=== PATIENT | male | born 1965 | race Caucasian/White ===

== ENCOUNTER 2018-07-19 18:55 | Emergency (ER) | payer OTHER ==
[~2018-07-19] VITALS: Ht 177.8 cm; Wt 116.7 kg
[2018-07-19 19:41] LABS: BASOPHIL % 0.2 % (0-2); PLATELET COUNT 332 x10^3mcL (130-400)
[2018-07-19 19:54] LABS: CALCIUM 9.4 mg/dL (8.5-10.1); CARBON DIOXIDE 28.6 mmol/L (21-32); CHLORIDE SERUM 100 mmol/L (98-107); CREATININE SERUM 0.8 mg/dL (0.7-1.3); GFR1 > 60 mL/min; GLUCOSE SERUM 113 mg/dL (74-106); POTASSIUM SERUM 4.2 mmol/L (3.5-5.1); SODIUM SERUM 137 mmol/L (136-145)
[2018-07-19 20:05] LABS: ALBUMIN 3.7 g/dL (3.4-5.0); ALKALINE PHOSPHATASE 83 U/L (46-116); ALT/SGPT 31 U/L (16-63); AST/SGOT 33 U/L (15-37); BILIRUBIN TOTAL 0.33 mg/dL (0.20-1.00); LIPASE 208 IU/L (73-393); TOTAL PROTEIN, SERUM 8.2 g/dL (6.4-8.2)
[2018-07-19 20:40] LABS: microscopic required? YES; urine erythrocyte NEGATIVE (NEGATIVE)
[2018-07-19 20:49] LABS: AMPHETAMINE QUAL UR POSITIVE (See below)
[2018-07-19 21:24] VITALS: BP 136/90
== END 2018-07-19 21:24 | disposition home or self-care (01) ==
LOC: ED 18:55
PROVIDERS: Emergency Medicine
DX: R10.12 Left upper quadrant pain (principal); G89.29 Other chronic pain; M54.9 Dorsalgia, unspecified; K74.60 Unspecified cirrhosis of liver; F15.10 Other stimulant abuse, uncomplicated; J45.909 Unspecified asthma, uncomplicated
CPT/HCPCS: 36415

== ENCOUNTER 2018-12-14 23:19 | Emergency (ER) | payer OTHER ==
[~2018-12-14] VITALS: Ht 177.8 cm; Wt 119.7 kg
[2018-12-14 23:42] VITALS: Ht 177.8 cm; Wt 119.7 kg
[2018-12-15 00:42] LABS: BASOPHIL % 0.4 % (0-2); PLATELET COUNT 243 x10^3mcL (130-400)
[2018-12-15 00:48] LABS: UA SPECIFIC GRAVITY 1.025 (1.005-1.035); microscopic required? YES; urine erythrocyte 1+ (NEGATIVE)
[2018-12-15 00:52] LABS: CALCIUM 9.1 mg/dL (8.5-10.1); CARBON DIOXIDE 29.8 mmol/L (21-32); CHLORIDE SERUM 99 mmol/L (98-107); GFR1 > 60 mL/min; GLUCOSE SERUM 110 mg/dL (74-106); POTASSIUM SERUM 3.8 mmol/L (3.5-5.1); SODIUM SERUM 137 mmol/L (136-145)
[2018-12-15 00:55] LABS: RED CELL DISTRIBUTION WIDTH 15.4 % (11.5-14.5)
[2018-12-15 00:56] LABS: ALKALINE PHOSPHATASE 78 U/L (46-116); ALT/SGPT 50 U/L (16-63); AMYLASE 39 U/L (25-115); AST/SGOT 67 U/L (15-37); BILIRUBIN TOTAL 0.71 mg/dL (0.20-1.00); LIPASE 185 IU/L (73-393); TOTAL PROTEIN, SERUM 7.9 g/dL (6.4-8.2)
[2018-12-15 01:13] VITALS: BP 158/94
== END 2018-12-15 01:06 | disposition home or self-care (01) ==
LOC: ED 23:19
PROVIDERS: Specialist
DX: N23 Unspecified renal colic (principal); N39.0 Urinary tract infection, site not specified; J45.909 Unspecified asthma, uncomplicated; Z85.820 Personal history of malignant melanoma of skin
CPT/HCPCS: 36415; J1885; J2270; J2405

== ENCOUNTER 2018-12-20 05:07 | Emergency (ER) | payer OTHER ==
[~2018-12-20] VITALS: Ht 177.8 cm; Wt 119.7 kg
[2018-12-20 05:08] VITALS: Ht 177.8 cm; Wt 119.7 kg
[2018-12-20 06:57] LABS: CALCIUM 8.7 mg/dL (8.5-10.1); CHLORIDE SERUM 102 mmol/L (98-107); GFR1 > 60 mL/min; GLUCOSE SERUM 142 mg/dL (74-106); POTASSIUM SERUM 3.8 mmol/L (3.5-5.1); SODIUM SERUM 137 mmol/L (136-145)
[2018-12-20 07:12] LABS: AMPHETAMINE QUAL UR POSITIVE (See below)
[2018-12-20 08:03] LABS: UA SPECIFIC GRAVITY >=1.030 (1.005-1.035); microscopic required? YES; urine erythrocyte 3+ (NEGATIVE)
[2018-12-20 09:29] VITALS: BP 157/90
== END 2018-12-20 09:29 | disposition home or self-care (01) ==
LOC: ED 05:07
PROVIDERS: Emergency Medicine
DX: N13.2 Hydronephrosis with renal and ureteral calculous obstruction (principal); F15.10 Other stimulant abuse, uncomplicated; K74.60 Unspecified cirrhosis of liver; J45.909 Unspecified asthma, uncomplicated; Z85.820 Personal history of malignant melanoma of skin
CPT/HCPCS: J2270; J2405

== ENCOUNTER 2018-12-23 23:19 | Emergency (ER) | payer OTHER ==
[~2018-12-23] VITALS: Ht 177.8 cm; Wt 118.8 kg
[2018-12-23 23:41] VITALS: Ht 177.8 cm; Wt 118.8 kg
[2018-12-24 02:15] LABS: BASOPHIL % 0.7 % (0-2); PLATELET COUNT 272 x10^3mcL (130-400)
[2018-12-24 02:16] LABS: RED CELL DISTRIBUTION WIDTH 15.3 % (11.5-14.5)
[2018-12-24 02:16] LABS: UA SPECIFIC GRAVITY 1.025 (1.005-1.035); microscopic required? YES; urine erythrocyte TRACE (NEGATIVE)
[2018-12-24 02:22] LABS: CALCIUM 9.6 mg/dL (8.5-10.1); CARBON DIOXIDE 29.4 mmol/L (21-32); CHLORIDE SERUM 103 mmol/L (98-107); CREATININE SERUM 1.2 mg/dL (0.7-1.3); GFR1 > 60 mL/min; GLUCOSE SERUM 116 mg/dL (74-106); POTASSIUM SERUM 4.6 mmol/L (3.5-5.1); SODIUM SERUM 141 mmol/L (136-145)
[2018-12-24 02:34] LABS: ALBUMIN 4.1 g/dL (3.4-5.0); ALKALINE PHOSPHATASE 109 U/L (46-116); ALT/SGPT 120 U/L (16-63); AST/SGOT 125 U/L (15-37); BILIRUBIN TOTAL 0.61 mg/dL (0.20-1.00); TOTAL PROTEIN, SERUM 8.2 g/dL (6.4-8.2)
[2018-12-24 02:37] VITALS: BP 148/92
== END 2018-12-24 02:23 | disposition left against medical advice (07) ==
LOC: ED 23:19
PROVIDERS: Emergency Medicine
DX: R10.9 Unspecified abdominal pain (principal)
CPT/HCPCS: 36415; J1885